=== PATIENT | male | born 1960 | race Asian ===

== ENCOUNTER 2022-02-24 06:18 | Day surgery (SDC) | payer BC ==
[2022-02-20 14:10] VITALS: BMI 23.6
[2022-02-24] MEDS ORDERED: BUPIVACAINE HCL/PF 2.5 MG/ML - 30 ML VIAL IJ ONE ×3 (07:08→07:25)
[2022-02-24] MEDS ORDERED: EPINEPHrine 1:1,000 1,000 MCG/ML ML ONE (07:09)
[2022-02-24] MEDS ORDERED: PROPOFOL 20 ML ONE (07:28)
[2022-02-24] MEDS ORDERED: MIDAZOLAM HCL 2 MG/2 ML SINGLE DOSE VIAL ONE ×2 (07:30→07:31)
[2022-02-24] MEDS ORDERED: DEXAMETHASONE SOD PHOSPHATE 4 MG/1 ML VIAL ONE (07:42)
[2022-02-24] MEDS ORDERED: ceFAZolin SODIUM 1 GM VIAL ONE (07:42)
[2022-02-24] MEDS ORDERED: ONDANSETRON 4 MG/2 ML VIAL ONE (07:42)
[2022-02-24] MEDS ORDERED: KETOROLAC TROMETHAMINE 30 MG/1 ML VIAL ONE (07:56)
[2022-02-24] MEDS ORDERED: BUPIVACAINE HCL/PF 0.25% (2.5MG/ML) 10 ML VIAL IJ ONE (08:13)
[2022-02-24] MEDS ORDERED: oxyCODONE HCL 5 MG TABLET PO PRN (08:29)
[2022-02-24] MEDS ORDERED: ONDANSETRON 4 MG/2 ML VIAL IVPUSH PRN (08:29)
[2022-02-24] MEDS ORDERED: LACTATED RINGERS SOLUTION 1,000 ML IV SCH (08:30)
[2022-02-24 14:18] VITALS: TEMP 97.5
[2022-02-24 14:32] VITALS: BP 140/84; PULSE 85
== END 2022-02-24 10:10 | disposition home or self-care (01) ==
LOC: EDBD → FASU 06:18
PROVIDERS: ATTEND Orthopaedic Surgery
PROC: 0SBC4ZZ Excision of Right Knee Joint, Percutaneous Endoscopic Approach (ICD-10-PCS; principal; 2022-02-24 07:52)
DX: S83.241A Other tear of medial meniscus, current injury, right knee, initial encounter (principal); S83.281A Other tear of lateral meniscus, current injury, right knee, initial encounter; S83.8X1A Sprain of other specified parts of right knee, initial encounter; M65.861 Other synovitis and tenosynovitis, right lower leg; X58.XXXA Exposure to other specified factors, initial encounter; Y93.9 Activity, unspecified; Y92.9 Unspecified place or not applicable
CPT/HCPCS: 94760